=== PATIENT | female | born 1975 | race Caucasian/White ===

== ENCOUNTER 2024-01-10 12:21 | Emergency (ER) | payer MEDICAID ==
[~2024-01-10] VITALS: Ht 157.5 cm; Wt 109.1 kg
[2024-01-10 12:28] VITALS: BP 133/98; PULSE 77; RESP 18; TEMP 97.9; O2SAT 96
== END 2024-01-10 12:38 | disposition home or self-care (01) ==
LOC: ER 12:22
DX: S51.831A Puncture wound without foreign body of right forearm, initial encounter (principal); X58.XXXA Exposure to other specified factors, initial encounter; Y93.89 Activity, other specified; Y92.89 Other specified places as the place of occurrence of the external cause; Y99.8 Other external cause status
CPT/HCPCS: 99281